=== PATIENT | male | born 1970 | race Caucasian/White ===

== ENCOUNTER 2022-02-21 10:36 | Inpatient (IN) | payer MEDICAID, OTHER ==
[~2022-02-21] VITALS: Ht 180.3 cm; Wt 98.7 kg
[2022-02-21 11:32] LABS: Basophils # (auto) 0.2 10 ^3/uL (0-0.2); Basophils % (auto) 1.2 % (0.0-2.0); Eosinophils # (auto) 0.1 10 ^3/uL (0-0.8); Eosinophils % (auto) 0.3 % (0.0-7.0); Hematocrit 47.1 % (41.0-53.0); Hemoglobin 15.4 g/dL (13.5-17.5); Lymphocytes # (auto) 1.5 10 ^3/uL (0.4-5.4); Lymphocytes % (auto) 7.5 % (10.0-50.0); Mean Corpuscular Hgb Conc. 32.6 g/dL (32.0-36.0); Mean Corpuscular Volume 95.1 fL (80.0-100.0); Monocytes # (auto) 1.3 10 ^3/uL (0-1.3); Monocytes % (auto) 6.5 % (0.0-12.0); Neutrophils # (auto) 16.6 10 ^3/uL (1.6-8.6); Neutrophils % (auto) 84.5 % (37.0-80.0); Red Blood Cells 4.95 10^6/uL (4.5-5.90); Red Cell Distribution Width 14.7 % (11.8-14.3); White Blood Cell 19.6 10^3/uL (4.4-10.8)
[2022-02-21 11:47] LABS: Albumin 3.7 g/dL (3.4-5.0); BUN/Creatinine Ratio 11.8; Calcium 9.2 mg/dL (8.5-10.1); Potassium 3.9 mmol/L (3.5-5.1)
[2022-02-21 11:50] LABS: Bilirubin, Total 0.4 mg/dL (0.2-1.0); Total Protein 8.1 g/dL (6.4-8.2)
[2022-02-21] MEDS ORDERED: IOHEXOL 300 MG/ML 100ML BOTTLE IJ ONE (13:49)
[2022-02-21 14:45] LABS: Urine Bacteria NONE SEEN /hpf (None Seen); Urine Blood Negative /uL (Negative); Urine WBC 1 /hpf (0 - 3)
[2022-02-21] MEDS ORDERED: SODIUM CHLORIDE 0.9% 1,000 ML IV ONE (14:45)
[2022-02-21] MEDS ORDERED: CIPROFLOXACIN 400MG/200ML 200 ML IV ONE (14:45)
[2022-02-21] MEDS ORDERED: metroNIDAZOLE 500MG/100ML 100 ML IV ONE (14:45)
[2022-02-21] MEDS ORDERED: ONDANSETRON HCL 4 MG/2 ML VIAL IV PRN (15:15)
[2022-02-21] MEDS ORDERED: DOCUSATE SOD 100 MG CAP PO PRN (15:15)
[2022-02-21] MEDS ORDERED: PIPERACILLIN-TAZOB 3.375GM 100 ML IV SCH (15:15)
[2022-02-21] MEDS ORDERED: HYDROcodone-ACET 5/325MG TAB PO PRN (15:15)
[2022-02-21] MEDS: MORPHINE SULFATE INJ 2 MG/ml SYRG IV PRN ×2 (16:02→23:39)
[2022-02-21] MEDS ORDERED: METOPROLOL TARTRATE 1MG/1ML-5ML VIAL IV PRN (17:15)
[2022-02-21] MEDS ORDERED: hydrALAZINE HCL 20 MG/ML VL IV PRN (17:15)
[2022-02-21] MEDS: SODIUM CHLORIDE 0.9% 1,000 ML IV SCH ×2 (18:09→23:35)
[2022-02-21] MEDS: PIPERACILLIN-TAZOB 3.375GM 100 ML IV SCH (18:10)
[2022-02-21 22:00] VITALS: BP_SYST 150; BP_SYST 94; BP_DIAS 64; BP_DIAS 91
[2022-02-21 22:07] VITALS: BP 150/91
[2022-02-21] MEDS ORDERED: FLUT50SP NAS (22:38)
[2022-02-21] MEDS ORDERED: ALPR0.5T8 PO (22:38)
[2022-02-21] MEDS ORDERED: VALA-30 PO (22:38)
[2022-02-21] MEDS ORDERED: LACT10SO3 PO (22:38)
[2022-02-21] MEDS ORDERED: HYDR-4611 (22:38)
[2022-02-21] MEDS ORDERED: CETI-120 PO (22:38)
[2022-02-21] MEDS ORDERED: ONDA-188 PO (22:38)
[2022-02-21] MEDS ORDERED: HYDR25TA87 PO (22:38)
[2022-02-21] MEDS ORDERED: MET50T PO (22:38)
[2022-02-21] MEDS ORDERED: AMLO-496 PO (22:38)
[2022-02-21] MEDS ORDERED: TIZA2TAB4 PO (22:38)
[2022-02-21] MEDS ORDERED: HYDR12.56 PO (22:38)
[2022-02-21] MEDS ORDERED: CLON0.1T PO (22:38)
[2022-02-21] MEDS ORDERED: ATOR40TA52 PO (22:38)
[2022-02-22] MEDS: PIPERACILLIN-TAZOB 3.375GM 100 ML IV SCH ×2 (01:45→08:49)
[2022-02-22 05:00] VITALS: BP 124/77
[2022-02-22 05:57] LABS: Basophils # (auto) 0.2 10 ^3/uL (0-0.2); Basophils % (auto) 1.4 % (0.0-2.0); Eosinophils # (auto) 0.1 10 ^3/uL (0-0.8); Eosinophils % (auto) 0.7 % (0.0-7.0); Hematocrit 40.9 % (41.0-53.0); Lymphocytes # (auto) 1.2 10 ^3/uL (0.4-5.4); Lymphocytes % (auto) 9.9 % (10.0-50.0); Mean Corpuscular Hemoglobin 32.2 pg (28.0-32.0); Mean Corpuscular Hgb Conc. 34.3 g/dL (32.0-36.0); Mean Corpuscular Volume 93.7 fL (80.0-100.0); Monocytes # (auto) 0.9 10 ^3/uL (0-1.3); Monocytes % (auto) 7.4 % (0.0-12.0); Neutrophils % (auto) 80.6 % (37.0-80.0); Red Blood Cells 4.37 10^6/uL (4.5-5.90); Red Cell Distribution Width 14.4 % (11.8-14.3); White Blood Cell 12.4 10^3/uL (4.4-10.8)
[2022-02-22 06:19] LABS: Calcium 8.5 mg/dL (8.5-10.1); Potassium 3.8 mmol/L (3.5-5.1)
[2022-02-22 06:37] LABS: Bilirubin, Total 0.7 mg/dL (0.2-1.0); Total Protein 6.9 g/dL (6.4-8.2)
[2022-02-22 08:43] VITALS: BP 149/95
[2022-02-22] MEDS: MORPHINE SULFATE INJ 2 MG/ml SYRG IV PRN ×4 (08:50→22:37)
[2022-02-22 09:00] VITALS: BP 149/95
[2022-02-22 09:24] LABS: INR 1.1 (0.9-1.15); Partial Thromboplastin Time 32.5 sec (24.6-33.4)
[2022-02-22] MEDS: ENOXAPARIN SOD 40 MG/0.4 ML SYRINGE SC SCH (10:00)
[2022-02-22] MEDS: SODIUM CHLORIDE 0.9% 1,000 ML IV SCH ×2 (13:16→16:15)
[2022-02-22 13:21] VITALS: BP 134/83
[2022-02-22 16:50] VITALS: BP 157/96
[2022-02-22] MEDS ORDERED: CLINIMIX PER PHARMACY 0 ML IV SCH (17:00)
[2022-02-22] MEDS: CEFTRIAXONE SODIUM 2 GM in D5W 5% 50 ML IV SCH (17:45)
[2022-02-22] MEDS: LORazepam 2MG/ML-1ML VIAL IV PRN (19:00)
[2022-02-22] MEDS: AMINO ACID INFUSION IN D10W 1,000 ML IV NR (20:40)
[2022-02-22] MEDS ORDERED: metroNIDAZOLE 500 MG TAB PO SCH (21:00)
[2022-02-22 22:00] VITALS: BP 137/84
[2022-02-23] VITALS (7 sets, daily range): BP systolic 136–153; BP diastolic 90–98
[2022-02-23] MEDS: metroNIDAZOLE 500MG/100ML 100 ML IV SCH ×5 (01:07→23:36)
[2022-02-23] MEDS: SODIUM CHLORIDE 0.9% 1,000 ML IV SCH ×3 (01:08→17:04)
[2022-02-23] MEDS: LORazepam 2MG/ML-1ML VIAL IV PRN ×4 (01:22→23:41)
[2022-02-23 05:28] LABS: Basophils # (auto) 0.1 10 ^3/uL (0-0.2); Basophils % (auto) 0.7 % (0.0-2.0); Eosinophils # (auto) 0.1 10 ^3/uL (0-0.8); Eosinophils % (auto) 1.1 % (0.0-7.0); Hematocrit 43.5 % (41.0-53.0); Hemoglobin 14.5 g/dL (13.5-17.5); Lymphocytes # (auto) 1.1 10 ^3/uL (0.4-5.4); Lymphocytes % (auto) 8.7 % (10.0-50.0); Mean Corpuscular Hgb Conc. 33.4 g/dL (32.0-36.0); Monocytes # (auto) 0.8 10 ^3/uL (0-1.3); Monocytes % (auto) 6.6 % (0.0-12.0); Neutrophils # (auto) 10.7 10 ^3/uL (1.6-8.6); Neutrophils % (auto) 82.9 % (37.0-80.0); Red Blood Cells 4.53 10^6/uL (4.5-5.90); Red Cell Distribution Width 14.8 % (11.8-14.3); White Blood Cell 12.9 10^3/uL (4.4-10.8)
[2022-02-23 05:42] LABS: Potassium 4.1 mmol/L (3.5-5.1)
[2022-02-23 05:49] LABS: BUN/Creatinine Ratio 11.4; Calcium 8.8 mg/dL (8.5-10.1); Magnesium 2.2 mg/dL (1.6-2.6); Phosphorus 2.7 mg/dL (2.5-4.90)
[2022-02-23] MEDS: MORPHINE SULFATE INJ 2 MG/ml SYRG IV PRN ×3 (06:00→16:47)
[2022-02-23 06:25] LABS: INR 1.09 (0.9-1.15); Partial Thromboplastin Time 31.7 sec (24.6-33.4)
[2022-02-23] MEDS: CEFTRIAXONE SODIUM 2 GM in D5W 5% 50 ML IV SCH (09:55)
[2022-02-23] MEDS: ENOXAPARIN SOD 40 MG/0.4 ML SYRINGE SC SCH (09:55)
[2022-02-23] MEDS ORDERED: DEXTROSE (50%) 50ML SYRG IV SCH (12:00)
[2022-02-23] MEDS: InsuLIN REG 1unit/0.01ml Soln (100units/ml) SC SCH ×3 (12:00→23:51)
[2022-02-23] MEDS: ACCU-CHEK COMFORT CURVE STRIP VI SCH ×3 (12:00→23:41)
[2022-02-23] MEDS: AMINO ACID INFUSION IN D10W 1,000 ML IV NR (19:57)
[2022-02-23] MEDS: HYDROmorphone HCL 2 MG/ML VL/or syr IV PRN (21:18)
[2022-02-24] MEDS: SODIUM CHLORIDE 0.9% 1,000 ML IV SCH (00:39)
[2022-02-24] MEDS: metroNIDAZOLE 500MG/100ML 100 ML IV SCH ×4 (05:14→23:48)
[2022-02-24] MEDS: ACCU-CHEK COMFORT CURVE STRIP VI SCH ×4 (05:15→23:48)
[2022-02-24] MEDS: HYDROmorphone HCL 2 MG/ML VL/or syr IV PRN ×4 (05:16→21:41)
[2022-02-24] MEDS: InsuLIN REG 1unit/0.01ml Soln (100units/ml) SC SCH ×4 (05:27→23:48)
[2022-02-24 05:30] VITALS: BP 157/91
[2022-02-24] MEDS: LORazepam 2MG/ML-1ML VIAL IV PRN (06:28)
[2022-02-24 06:38] LABS: BUN/Creatinine Ratio 12.2; Calcium 8.3 mg/dL (8.5-10.1); Magnesium 2.3 mg/dL (1.6-2.6); Phosphorus 2.6 mg/dL (2.5-4.90)
[2022-02-24 08:00] VITALS: BP 150/95
[2022-02-24] MEDS ORDERED: IOHEXOL 300 MG/ML 100ML BOTTLE IJ ONE (08:30)
[2022-02-24 09:08] VITALS: BP 149/107
[2022-02-24] MEDS ORDERED: cloNIDine HCL 0.1 MG TAB PO PRN (09:45)
[2022-02-24] MEDS: CEFTRIAXONE SODIUM 2 GM in D5W 5% 50 ML IV SCH (09:50)
[2022-02-24] MEDS: ENOXAPARIN SOD 40 MG/0.4 ML SYRINGE SC SCH (09:50)
[2022-02-24] MEDS: FLUTICASONE PROP NASAL SPR 0.05 % (50MCG) 16GM EACHNOSTRI SCH (10:00)
[2022-02-24] MEDS ORDERED: ALPRAZolam 0.5 MG TAB PO SCH (10:00)
[2022-02-24] MEDS: hydrALAZINE HCL 25 MG TAB PO SCH ×2 (10:08→21:41)
[2022-02-24] MEDS: ALPRAZolam 0.5 MG TAB PO SCH ×2 (10:08→21:40)
[2022-02-24] MEDS: METOPROLOL TARTRATE 50 MG TAB PO SCH ×2 (10:09→21:41)
[2022-02-24] MEDS ORDERED: METR500T PO (11:40)
[2022-02-24 13:00] VITALS: BP 141/93
[2022-02-24 16:56] VITALS: BP 150/92
[2022-02-24] MEDS: AMINO ACID INFUSION IN D10W 1,000 ML IV NR (20:04)
[2022-02-24] MEDS: HYDROcodone-ACET 5/325MG TAB PO PRN (20:04)
[2022-02-24] MEDS ORDERED: ALPRAZolam 0.5 MG TAB PO ONE (22:15)
[2022-02-25 05:00] VITALS: BP 158/83
[2022-02-25 05:26] LABS: Basophils # (auto) 0.1 10 ^3/uL (0-0.2); Basophils % (auto) 0.5 % (0.0-2.0); Eosinophils # (auto) 0.2 10 ^3/uL (0-0.8); Eosinophils % (auto) 1.4 % (0.0-7.0); Hematocrit 44.7 % (41.0-53.0); Hemoglobin 14.8 g/dL (13.5-17.5); Lymphocytes # (auto) 1.1 10 ^3/uL (0.4-5.4); Lymphocytes % (auto) 8.1 % (10.0-50.0); Mean Corpuscular Hemoglobin 30.9 pg (28.0-32.0); Mean Corpuscular Hgb Conc. 33.2 g/dL (32.0-36.0); Mean Corpuscular Volume 93.1 fL (80.0-100.0); Monocytes # (auto) 0.9 10 ^3/uL (0-1.3); Monocytes % (auto) 6.3 % (0.0-12.0); Neutrophils # (auto) 11.5 10 ^3/uL (1.6-8.6); Neutrophils % (auto) 83.7 % (37.0-80.0); Red Cell Distribution Width 14.8 % (11.8-14.3); White Blood Cell 13.7 10^3/uL (4.4-10.8)
[2022-02-25 05:38] LABS: Albumin 3.2 g/dL (3.4-5.0); Magnesium 2.1 mg/dL (1.6-2.6)
[2022-02-25 05:40] LABS: BUN/Creatinine Ratio 10.1; Phosphorus 3.1 mg/dL (2.5-4.90)
[2022-02-25] MEDS: InsuLIN REG 1unit/0.01ml Soln (100units/ml) SC SCH ×3 (06:00→18:00)
[2022-02-25] MEDS: metroNIDAZOLE 500MG/100ML 100 ML IV SCH ×3 (06:01→18:05)
[2022-02-25] MEDS: ACCU-CHEK COMFORT CURVE STRIP VI SCH ×3 (06:01→18:02)
[2022-02-25] MEDS: CEFTRIAXONE SODIUM 2 GM in D5W 5% 50 ML IV SCH (07:58)
[2022-02-25 08:00] VITALS: BP 149/99
[2022-02-25] MEDS: HYDROmorphone HCL 2 MG/ML VL/or syr IV PRN ×2 (08:01→14:52)
[2022-02-25 09:00] VITALS: BP 149/99
[2022-02-25] MEDS: FLUTICASONE PROP NASAL SPR 0.05 % (50MCG) 16GM EACHNOSTRI SCH (09:04)
[2022-02-25] MEDS: ALPRAZolam 0.5 MG TAB PO SCH (09:05)
[2022-02-25] MEDS: ENOXAPARIN SOD 40 MG/0.4 ML SYRINGE SC SCH (09:05)
[2022-02-25] MEDS: hydrALAZINE HCL 25 MG TAB PO SCH (09:05)
[2022-02-25] MEDS: METOPROLOL TARTRATE 50 MG TAB PO SCH (09:06)
[2022-02-25 13:00] VITALS: BP 148/94
[2022-02-25 16:51] VITALS: BP 135/76
[2022-02-25 17:00] VITALS: BP 143/95
[2022-02-25] MEDS: HYDROcodone-ACET 5/325MG TAB PO PRN (20:05)
== END 2022-02-25 20:10 | disposition home health service (06) | DRG 244 ==
LOC: ER 10:36 → TELE 15:13 → TELE-CENTR 21:52
PROVIDERS: ADMIT Internal Medicine; ATTEND Hospitalist
PROC: 05HC33Z Insertion of Infusion Device into Left Basilic Vein, Percutaneous Approach (ICD-10-PCS; principal; 2022-02-23)
PROC: B54NZZA Ultrasonography of Left Upper Extremity Veins, Guidance (ICD-10-PCS; 2022-02-23)
DX: K57.20 Diverticulitis of large intestine with perforation and abscess without bleeding (principal); F43.10 Post-traumatic stress disorder, unspecified; I10 Essential (primary) hypertension; I16.0 Hypertensive urgency; K59.00 Constipation, unspecified; I25.10 Atherosclerotic heart disease of native coronary artery without angina pectoris; Z20.822 Contact with and (suspected) exposure to COVID-19
CPT/HCPCS: 36415; 74177; 80053; 80069; 81001; 82962; 83605; 83735; 85025; 85610; 85730; 87081; 93005; 96361; 96365; 96368; 96375; G0378; J0696; J2405; J2543; J3490; J7060